=== PATIENT | male | born 1965 | race Caucasian/White ===

== ENCOUNTER 2017-03-25 10:02 | Emergency (ER) | payer MEDICARE ==
[2017-03-25 10:15] VITALS: BP 110/83; PULSE 93; RESP 20; TEMP 96.9; O2SAT 99
[2017-03-25] MEDS ORDERED: APAP/OXYCODONE 325/5 TAB PO ONE (13:08)
[2017-03-25] MEDS ORDERED: HYDROMORPHONE HCL 2 MG/ML SOL IM ONE (13:09)
== END 2017-03-25 13:28 | disposition home or self-care (01) | DRG 93 ==
LOC: ED 10:02
DX: G89.29 Other chronic pain (principal); M54.2 Cervicalgia; M54.6 Pain in thoracic spine; Z98.1 Arthrodesis status
CPT/HCPCS: 72040; 72070; 99282